=== PATIENT | female | born 1950 | race Two or more races ===

== ENCOUNTER 2022-06-05 05:39 | Day surgery (SDC) | payer OTHER ==
[~2022-06-05] VITALS: Ht 152.4 cm; Wt 59.0 kg
[~2022-06-05 05:39] MED LIST: LOSART PO; METFORM PO; SIMVASTA PO
== END 2022-06-05 16:25 | disposition home or self-care (01) ==
LOC: CIR.AMB 05:39
PROVIDERS: ATTEND Colon & Rectal Surgery
DX: K64.1 Second degree hemorrhoids (principal); K64.4 Residual hemorrhoidal skin tags; I10 Essential (primary) hypertension; E78.5 Hyperlipidemia, unspecified; E11.9 Type 2 diabetes mellitus without complications; Z79.84 Long term (current) use of oral hypoglycemic drugs

== ENCOUNTER 2022-06-05 06:06 | Outpatient (CLI) | payer OTHER | END 2022-06-05 06:08 | disposition home or self-care (01) | LOC: LAB 06:06 | PROVIDERS: ATTEND Colon & Rectal Surgery | DX: Z03.818 Encounter for observation for suspected exposure to other biological agents ruled out (principal); Z20.822 Contact with and (suspected) exposure to COVID-19 ==